=== PATIENT | male | born 1960 | race Caucasian/White ===

== ENCOUNTER 2018-04-10 03:03 | Observation (INO) | payer MEDICARE, OTHER ==
[~2018-04-10] VITALS: Ht 185.4 cm; Wt 112.7 kg
[2018-04-10] MEDS ORDERED: MORPHINE SULFATE 4 MG/ML, 1ML IVPush ONE (03:30)
[2018-04-10] MEDS ORDERED: SODIUM CHLORIDE FLUSH 10ML SYR IVF ONE (03:30)
[2018-04-10] MEDS ORDERED: MORPHINE SULFATE 4 MG/ML, 1ML ONE ×2 (03:34→05:56)
[2018-04-10 03:49] LABS: BASOPHILS # (AUTO) 0.08 x10^3/uL (0-0.1); BASOPHILS % (AUTO) 1 % (0-1); EOSINOPHILS # (AUTO) 0.72 x10^3/uL (0-0.4); EOSINOPHILS % (AUTO) 7 % (1-7); LYMPHOCYTES # (AUTO) 1.83 x10^3/uL (1-3.4); LYMPHOCYTES % (AUTO) 18 % (22-44); MD NO; MEAN CORPUSCULAR HEMOGLOBIN 33.6 pg (27.5-34.5); MEAN CORPUSCULAR HGB CONC 34.2 g/dL (33.2-36.2); MEAN CORPUSCULAR VOLUME 98.1 fL (81-97); MEAN PLATELET VOLUME 7.5 fL (7.4-10.4); MONOCYTES # (AUTO) 0.87 x10^3/uL (0.2-0.8); MONOCYTES % (AUTO) 8 % (2-9); NEUTROPHILS # (AUTO) 6.98 x10^3/uL (1.8-6.8); NEUTROPHILS % (AUTO) 67 % (42-75); PLATELET COUNT 302 x10^3/uL (130-400); RED BLOOD COUNT 4.47 x10^6/uL (4.38-5.82); RED CELL DISTRIBUTION WIDTH 12.8 % (9.4-14.8)
[2018-04-10 04:01] LABS: ALANINE AMINOTRANSFERASE 49 U/L (12-78); ANION GAP 13 mmol/L (5-15); CALCIUM 7.9 mg/dL (8.5-10.1); CHLORIDE 99 mmol/L (98-107); CREATININE 0.91 mg/dL (0.7-1.3)
[2018-04-10 04:05] LABS: ALKALINE PHOSPHATASE 102 U/L (45-117); TOTAL PROTEIN 7.2 g/dL (6.4-8.2); TROPONIN I < 0.015 ng/mL (0.000-0.045)
[2018-04-10] MEDS ORDERED: OMNIPAQUE 350 MG/ML, 100ML BOTTLE ONE (05:22)
[2018-04-10] MEDS ORDERED: MORPHINE SULFATE 4 MG/ML, 1ML IVPush PRN (06:30)
[2018-04-10] MEDS ORDERED: ONDANSETRON 2MG/ML, 2ML IVPush PRN ×2 (06:30→11:00)
[2018-04-10] MEDS ORDERED: PLEASE ENTER ALLERGIES MC SCH (07:00)
[2018-04-10 09:28] VITALS: BP 148/94
[2018-04-10] MEDS ORDERED: HALOPERIDOL 5 MG/ML IM PRN (11:00)
[2018-04-10] MEDS ORDERED: LORazepam 2 MG/ML, 1ML IVPush PRN (11:00)
[2018-04-10] MEDS ORDERED: ACETAMINOPHEN 325 MG TABLET PO PRN (11:00)
[2018-04-10] MEDS ORDERED: morphine SULFATE 10 MG/ML, 1ML IVPush PRN (11:00)
[2018-04-10] MEDS ORDERED: ENALAPRILAT 1.25 MG/ML, 2ML IVPush PRN (11:00)
[2018-04-10] MEDS ORDERED: TEMAZEPAM 15 MG CAPSULE PO PRN (11:00)
[2018-04-10] MEDS ORDERED: HYDROcodone/APAP 5/325 TABLET PO PRN (11:00)
[2018-04-10] MEDS: NICOTINE 21 MG/24 HR PATCH.TD24 TD SCH (12:17)
[2018-04-10] MEDS: LISINOPRIL 10 MG TABLET PO SCH ×2 (12:17→20:47)
[2018-04-10] MEDS: CEFTRIAXONE PMX 2GM/50ML 50 ML IV SCH (12:19)
[2018-04-10] MEDS: methylPREDNISolone SOD SUCC 125 MG/2 ML IVPush SCH ×3 (12:19→23:36)
[2018-04-10] MEDS: ENOXAPARIN 40 MG/0.4 ML SQ SCH (12:19)
[2018-04-10] MEDS: INSULIN GLARGINE 100 UNITS/ML, PEN SQ-INSULIN SCH (12:21)
[2018-04-10] MEDS: INSULIN LISPRO 100 UNITS/ML, PEN SQ-INSULIN SCH ×3 (12:24→20:46)
[2018-04-10] MEDS ORDERED: ALBUTEROL/IPRATROPIUM 2.5MG/0.5MG, 3 ML ONE (12:32)
[2018-04-10] MEDS: ALBUTEROL/IPRATROPIUM 2.5MG/0.5MG, 3 ML NPPB SCH ×2 (12:40→20:11)
[2018-04-10] MEDS: AZITHROMYCIN 500 MG in SODIUM CHLORIDE 0.9% 250 ML IV SCH (12:55)
[2018-04-10 14:31] VITALS: BP 158/78
[2018-04-10] MEDS: METOPROLOL TARTRATE 25 MG TABLET PO SCH (17:02)
[2018-04-10 20:03] VITALS: BP 120/75
[2018-04-10] MEDS ORDERED: LORazepam 1MG TABLET PO PRN (22:00)
[2018-04-10 22:49] LABS: TROPONIN I < 0.015 ng/mL (0.000-0.045)
[2018-04-11 01:05] VITALS: BP 121/71
[2018-04-11] MEDS ORDERED: ALBUTEROL/IPRATROPIUM 2.5MG/0.5MG, 3 ML NPPB PRN (04:00)
[2018-04-11 04:32] VITALS: BP 108/65
[2018-04-11 04:43] LABS: BASOPHILS # (AUTO) 0.04 x10^3/uL (0-0.1); BASOPHILS % (AUTO) 0 % (0-1); EOSINOPHILS % (AUTO) 0 % (1-7); LYMPHOCYTES # (AUTO) 0.91 x10^3/uL (1-3.4); LYMPHOCYTES % (AUTO) 7 % (22-44); MD NO; MEAN CORPUSCULAR HEMOGLOBIN 33.4 pg (27.5-34.5); MEAN CORPUSCULAR HGB CONC 34.2 g/dL (33.2-36.2); MEAN CORPUSCULAR VOLUME 97.8 fL (81-97); MEAN PLATELET VOLUME 7.8 fL (7.4-10.4); MONOCYTES # (AUTO) 0.09 x10^3/uL (0.2-0.8); MONOCYTES % (AUTO) 1 % (2-9); NEUTROPHILS # (AUTO) 12.91 x10^3/uL (1.8-6.8); NEUTROPHILS % (AUTO) 93 % (42-75); PLATELET COUNT 291 x10^3/uL (130-400); RED CELL DISTRIBUTION WIDTH 12.8 % (9.4-14.8)
[2018-04-11 04:50] LABS: ALBUMIN 3.3 g/dL (3.4-5.0); ANION GAP 11 mmol/L (5-15); CALCIUM 8.9 mg/dL (8.5-10.1); CHLORIDE 102 mmol/L (98-107)
[2018-04-11 04:53] LABS: ALANINE AMINOTRANSFERASE 56 U/L (12-78); ALKALINE PHOSPHATASE 119 U/L (45-117); BILIRUBIN,TOTAL 0.7 mg/dL (0.2-1.0); CREATININE 1.35 mg/dL (0.7-1.3); TOTAL PROTEIN 7.6 g/dL (6.4-8.2); TRIGLYCERIDES 114 mg/dL (50-200)
[2018-04-11 04:54] LABS: CHOL/HDL RATIO 3.4; CHOLESTEROL, TOTAL 188 mg/dL (140-239); HDL CHOL % 29 % (26-37); HDL CHOLESTEROL (DIRECT) 55 mg/dL (40-60); LDL CHOLESTEROL,CALCULATED 110 mg/dL (54-169); TROPONIN I < 0.015 ng/mL (0.000-0.045); VLDL CHOLESTEROL 23 mg/dL (0-25)
[2018-04-11] MEDS: METOPROLOL TARTRATE 25 MG TABLET PO SCH ×2 (05:13→17:06)
[2018-04-11] MEDS: methylPREDNISolone SOD SUCC 125 MG/2 ML IVPush SCH ×4 (05:13→17:06)
[2018-04-11] MEDS: ALBUTEROL/IPRATROPIUM 2.5MG/0.5MG, 3 ML NPPB SCH ×4 (07:00→18:56)
[2018-04-11] MEDS ORDERED: REGADENOSON 0.4 MG/5 ML SYRINGE ONE (08:21)
[2018-04-11 08:29] VITALS: BP 123/70
[2018-04-11] MEDS ORDERED: GUAIFENESIN ER 600 MG TABLET ONE (09:23)
[2018-04-11] MEDS ORDERED: GUAIFENESIN 200 MG TABLET ONE (09:23)
[2018-04-11] MEDS: INSULIN LISPRO 100 UNITS/ML, PEN SQ-INSULIN SCH ×4 (09:27→21:23)
[2018-04-11] MEDS: INSULIN GLARGINE 100 UNITS/ML, PEN SQ-INSULIN SCH ×3 (09:28→20:17)
[2018-04-11] MEDS ORDERED: GUAIFENESIN 200 MG TABLET PO SCH (09:30)
[2018-04-11] MEDS ORDERED: LORazepam 2 MG/ML, 1ML IV PRN ×5 (09:30)
[2018-04-11] MEDS ORDERED: LORazepam 1MG TABLET PO PRN ×3 (09:30)
[2018-04-11] MEDS: LISINOPRIL 10 MG TABLET PO SCH ×2 (09:31→21:23)
[2018-04-11] MEDS: LORazepam 1MG TABLET PO PRN ×2 (09:35→14:41)
[2018-04-11] MEDS: GUAIFENESIN ER 600 MG TABLET PO SCH ×3 (12:10→21:23)
[2018-04-11] MEDS: NICOTINE 21 MG/24 HR PATCH.TD24 TD SCH (12:14)
[2018-04-11] MEDS: ENOXAPARIN 40 MG/0.4 ML SQ SCH (12:15)
[2018-04-11] MEDS: CEFTRIAXONE PMX 2GM/50ML 50 ML IV SCH (12:21)
[2018-04-11] MEDS ORDERED: INSULIN GLARGINE 100 UNITS/ML, PEN SQ-INSULIN ONE (12:30)
[2018-04-11 13:03] LABS: CLOSTRIDIUM DIFFICILE ANTIGEN NEGATIVE; CLOSTRIDIUM DIFFICILE TOXIN NEGATIVE (Negative)
[2018-04-11] MEDS: AZITHROMYCIN 500 MG in SODIUM CHLORIDE 0.9% 250 ML IV SCH (13:12)
[2018-04-11 14:23] VITALS: BP 100/59
[2018-04-11 20:04] VITALS: BP 114/63
[2018-04-11] MEDS: LORazepam 0.5MG TABLET PO PRN (22:32)
[2018-04-12] MEDS: methylPREDNISolone SOD SUCC 125 MG/2 ML IVPush SCH ×4 (00:47→18:17)
[2018-04-12 01:07] VITALS: BP 113/62
[2018-04-12 05:49] LABS: CHLORIDE 103 mmol/L (98-107)
[2018-04-12 05:57] LABS: ANION GAP 10 mmol/L (5-15); CALCIUM 8.8 mg/dL (8.5-10.1); CREATININE 0.96 mg/dL (0.7-1.3)
[2018-04-12] MEDS: METOPROLOL TARTRATE 25 MG TABLET PO SCH ×2 (06:17→18:17)
[2018-04-12 07:26] VITALS: BP 133/82
[2018-04-12] MEDS: ALBUTEROL/IPRATROPIUM 2.5MG/0.5MG, 3 ML NPPB SCH ×4 (07:48→19:56)
[2018-04-12] MEDS: INSULIN LISPRO 100 UNITS/ML, PEN SQ-INSULIN SCH ×4 (08:58→20:12)
[2018-04-12] MEDS: INSULIN GLARGINE 100 UNITS/ML, PEN SQ-INSULIN SCH ×2 (08:59→20:11)
[2018-04-12] MEDS: LISINOPRIL 10 MG TABLET PO SCH ×2 (08:59→20:11)
[2018-04-12] MEDS: GUAIFENESIN ER 600 MG TABLET PO SCH ×3 (08:59→20:11)
[2018-04-12] MEDS ORDERED: INSULIN GLARGINE 100 UNITS/ML, PEN SQ-INSULIN SCH (09:00)
[2018-04-12] MEDS: LORazepam 0.5MG TABLET PO PRN (09:14)
[2018-04-12] MEDS: CEFTRIAXONE PMX 2GM/50ML 50 ML IV SCH (12:39)
[2018-04-12] MEDS: NICOTINE 21 MG/24 HR PATCH.TD24 TD SCH (12:40)
[2018-04-12] MEDS: ENOXAPARIN 40 MG/0.4 ML SQ SCH (12:40)
[2018-04-12 13:28] VITALS: BP 128/71
[2018-04-12] MEDS: AZITHROMYCIN 500 MG in SODIUM CHLORIDE 0.9% 250 ML IV SCH (14:13)
[2018-04-12 19:35] VITALS: BP 145/77
[2018-04-12] MEDS: LORazepam 1MG TABLET PO PRN (20:22)
[2018-04-13] MEDS: methylPREDNISolone SOD SUCC 125 MG/2 ML IVPush SCH ×2 (00:51→06:24)
[2018-04-13] MEDS: LORazepam 1MG TABLET PO PRN (00:59)
[2018-04-13 01:17] VITALS: BP 132/78
[2018-04-13] MEDS: METOPROLOL TARTRATE 25 MG TABLET PO SCH (06:24)
[2018-04-13 08:00] VITALS: BP 135/88
[2018-04-13] MEDS: ALBUTEROL/IPRATROPIUM 2.5MG/0.5MG, 3 ML NPPB SCH ×2 (08:20→10:44)
[2018-04-13] MEDS: LISINOPRIL 10 MG TABLET PO SCH (09:33)
[2018-04-13] MEDS: GUAIFENESIN ER 600 MG TABLET PO SCH (09:33)
[2018-04-13] MEDS: INSULIN LISPRO 100 UNITS/ML, PEN SQ-INSULIN SCH ×2 (09:38→11:00)
[2018-04-13] MEDS: INSULIN GLARGINE 100 UNITS/ML, PEN SQ-INSULIN SCH (09:38)
[2018-04-13] MEDS ORDERED: CEFD300C37 PO (11:45)
[2018-04-13] MEDS ORDERED: AZIT500T PO (11:45)
[2018-04-13] MEDS ORDERED: LISI-167 PO (11:45)
[2018-04-13] MEDS ORDERED: NICO-487 TD (11:45)
[2018-04-13] MEDS ORDERED: IPRA3AMP30 NPPB (11:45)
[2018-04-13] MEDS ORDERED: GUAI600T31 PO (11:45)
[2018-04-13] MEDS ORDERED: METO25TA35 PO (11:45)
[2018-04-13] MEDS ORDERED: INSU100I13 SQ-INSULIN (11:45)
[2018-04-13] MEDS ORDERED: PRED10TA PO (11:45)
[2018-04-13] MEDS ORDERED: SIMV20TA PO (11:51)
== END 2018-04-13 12:09 | disposition home or self-care (01) ==
LOC: ED 04:13 → EDIP 04:55 → INTOOBSV 04:55 → 5SO 07:32 → 3NE 04-12 18:02
PROVIDERS: ADMIT Internal Medicine; ATTEND Internal Medicine
DX: R07.9 Chest pain, unspecified (principal); N17.0 Acute kidney failure with tubular necrosis; J44.0 Chronic obstructive pulmonary disease with (acute) lower respiratory infection; J44.1 Chronic obstructive pulmonary disease with (acute) exacerbation; I20.0 Unstable angina; E66.9 Obesity, unspecified; R19.7 Diarrhea, unspecified; K70.10 Alcoholic hepatitis without ascites; E11.9 Type 2 diabetes mellitus without complications; E78.5 Hyperlipidemia, unspecified; F17.200 Nicotine dependence, unspecified, uncomplicated; I10 Essential (primary) hypertension; K21.9 Gastro-esophageal reflux disease without esophagitis; Z80.0 Family history of malignant neoplasm of digestive organs; Z80.42 Family history of malignant neoplasm of prostate; Z82.49 Family history of ischemic heart disease and other diseases of the circulatory system; Z90.49 Acquired absence of other specified parts of digestive tract; I51.89 Other ill-defined heart diseases; Z68.32 Body mass index [BMI] 32.0-32.9, adult; Z72.89 Other problems related to lifestyle; Z79.2 Long term (current) use of antibiotics; Z79.4 Long term (current) use of insulin; Z79.899 Other long term (current) drug therapy
CPT/HCPCS: 36415; 71045; 71275; 78452; 80048; 80053; 80061; 82962; 83036; 83735; 83880; 84100; 84443; 84484; 85025; 87324; 90471; 90656; 93005; 93017; 93306; 94640; 96365; 96366; 96367; 96372; 96374; 96375; 96376; 97161; 97165; 99285; A9502; C9898; G0378; G8978; G8979; G8980; J0456; J0696; J1650; J1815; J2785; J2930; J7050; J7620; Q9967

== ENCOUNTER 2018-04-16 13:50 | Emergency (ER) | payer MEDICARE ==
[~2018-04-16] VITALS: Ht 185.4 cm; Wt 117.1 kg
[~2018-04-16 13:50] MED LIST: AZIT500T PO; CEFD300C37 PO; GUAI600T31 PO; INSU100I13 SQ-INSULIN; IPRA3AMP30 NPPB; LISI-167 PO; METO25TA35 PO; NICO-487 TD; PRED10TA PO; SIMV20TA PO
[2018-04-16] MEDS ORDERED: SODIUM CHLORIDE FLUSH 10ML SYR IVF ONE (14:00)
[2018-04-16 14:47] LABS: MEAN CORPUSCULAR HEMOGLOBIN 32.8 pg (27.5-34.5); MEAN CORPUSCULAR VOLUME 96.3 fL (81-97); MEAN PLATELET VOLUME 8.2 fL (7.4-10.4); PLATELET COUNT 315 x10^3/uL (130-400); RED CELL DISTRIBUTION WIDTH 12.9 % (9.4-14.8)
[2018-04-16] MEDS ORDERED: SODIUM CHLORIDE 0.9% 1,000ML IVBOLUS ONE ×2 (15:00→16:00)
[2018-04-16 15:22] LABS: ALBUMIN 3.4 g/dL (3.4-5.0); ANION GAP 7 mmol/L (5-15); CALCIUM 9.6 mg/dL (8.5-10.1); CHLORIDE 102 mmol/L (98-107); CREATININE 1.78 mg/dL (0.7-1.3)
[2018-04-16 15:26] LABS: ALANINE AMINOTRANSFERASE 75 U/L (12-78); ALKALINE PHOSPHATASE 91 U/L (45-117); BILIRUBIN,TOTAL 1.2 mg/dL (0.2-1.0); TOTAL PROTEIN 7.7 g/dL (6.4-8.2); TROPONIN I < 0.015 ng/mL (0.000-0.045)
[2018-04-16] MEDS ORDERED: METF500T17 PO (15:40)
[2018-04-16 15:46] LABS: MD YES
[2018-04-16 15:49] LABS: BAND#(MANUAL) 0.31 x10^3/uL; BANDS%(MANUAL) 2 % (0-7); EOS#(MANUAL) 0.62 x10^3/uL (0.0-0.4); EOS% (MANUAL) 4 % (1-7); LYMPH#(MANUAL) 1.08 x10^3/uL (1-3.4); LYMPHS% (MANUAL) 7 % (22-44); MONOS#(MANUAL) 1.08 x10^3/uL (0.3-2.7); MONOS% (MANUAL) 7 % (2-9); REACTIVE LYMPHS # (MANUAL) 0.15 x10^3/uL (0-0); REACTIVE LYMPHS % (MANUAL) 1 % (0-0); SEG#(MANUAL) 12.17 x10^3/uL (1.8-6.8); SEGS% (MANUAL) 79 % (42-75)
[2018-04-16 15:50] LABS: <PLATELET ESTIMATE> ADEQUATE; <PLT MORPHOLOGY> NORMAL PLT MORPH; <RBC MORPHOLOGY> NORMAL
[2018-04-16 17:21] VITALS: BP 136/82
== END 2018-04-16 17:52 | disposition home or self-care (01) ==
LOC: ED 16:55
DX: J18.9 Pneumonia, unspecified organism (principal); E11.9 Type 2 diabetes mellitus without complications; E78.5 Hyperlipidemia, unspecified; K21.9 Gastro-esophageal reflux disease without esophagitis; J44.9 Chronic obstructive pulmonary disease, unspecified; Z90.49 Acquired absence of other specified parts of digestive tract; Z90.89 Acquired absence of other organs
CPT/HCPCS: 36415; 71045; 80053; 84484; 85025; 93005; 96360; 96361; 99285; J7030